=== PATIENT | female | born 1990 | race Asian ===

== ENCOUNTER 2022-07-26 16:39 | Emergency (ER) | payer BC ==
[2022-07-26 18:06] LABS: #Monocytes 0.4 10x3/uL (0.0-1.1); #Neutrophils 7.1 10x3/uL (1.5-8.4); %Basophils 0.4 % (0.0-2.0); %Eosinophils 0.2 % (0.0-6.0); %Lymphocytes 10.4 % (18.0-47.0); %Monocytes 4.8 % (0.0-10.0); %Neutrophils 83.8 % (40.0-75.0); Hemoglobin 11.5 g/dL (12.0-15.5); Mean Corpuscular Hemoglobin 24.5 pg (27.0-33.0); Mean Corpuscular Volume 76.5 fl (81.6-98.3); Mean Platelet Volume 11.6 fl (7.4-10.4); Platelet Count 240 10x3/uL (150-450); RBC Distribution Width 13.8 % (11.5-14.5); Red Blood Cell (RBC) Count 4.69 10x6/uL (3.90-5.03); White Blood Cell (WBC) Count 8.5 10x3/uL (3.5-10.5)
[2022-07-26 18:20] LABS: BHCG - Serum Negative (NEGATIVE); Pregs Control Background? CLEAR/WHITE (CLR/WHITE); Pregs Control Bar Appear? YES (CONTROL BAR)
[2022-07-26 18:26] LABS: ALT (SGPT) 15 U/L (8-55); AST (SGOT) 15 U/L (5-34); Albumin 4.2 g/dL (3.5-5.0); Alkaline Phosphatase 79 U/L (40-110); Anion Gap 15 mmol/L (10-20); BUN (Urea Nitrogen) 11 mg/dL (7.0-18.7); Bilirubin, Total 0.4 mg/dL (0.2-1.2); Calc. Creatinine Clearance 0 mL/min (70-130); Calcium 9.1 mg/dL (7.8-10.44); Carbon Dioxide 23 mmol/L (22-29); Chloride 104 mmol/L (98-107); Estimated GFR 109; Globulin 3.4 g/dL (2.4-3.5); Glucose 172 mg/dL (70-105); Lipase 21 U/L (8-78); Protein, Total 7.6 g/dL (6.0-8.3); Sodium 138 mmol/L (136-145)
[2022-07-26 18:48] LABS: Bilirubin Neg (Negative); Blood, Urine 150 (Negative); Clarity Slightly Cloudy (Clear); Glucose, Urine (Dipstick) 50 mg/dL (Negative); Ketone, Urine 50 mg/dL (Negative); Leukocyte Negative (Negative); Nitrite Negative (Negative); Protein, Urine (Dipstick) 30 mg/dl (Neg-Trace); Urobilinogen Normal mg/dL (Less than 2)
[2022-07-26 18:55] LABS: Bacteria/HPF Rare-Few HPF (None Seen); Mucous/LPF Rare LPF (<2+); Squamous Epithelial 0-3 HPF (0-3); WBC/HPF 0-3 HPF (0-3)
== END 2022-07-26 19:32 | disposition home or self-care (01) ==
LOC: CSHERS 16:39
DX: N94.6 Dysmenorrhea, unspecified (principal)
CPT/HCPCS: 36415; 80053; 81003; 81015; 83605; 83690; 84703; 85025; 99284